=== PATIENT | male | born 1955 | race Caucasian/White ===

== ENCOUNTER → 2020-11-10 | Day surgery (SDC) | payer MEDICARE, OTHER ==
[~2020-11-10] MED LIST: Lactated Ringers 1,000 ML IV SCH
--- NOTE | 2020-11-10 14:43 | OR ---
DATE OF OPERATION: 11/10/2020 PREOPERATIVE DIAGNOSIS: FOLLOWUP POLYPS. POSTOPERATIVE DIAGNOSIS: FOLLOWUP POLYPS. SURGEON: Piotr Acevedo MD PROCEDURE: FULL-LENGTH COLONOSCOPY WITH SNARE POLYPECTOMY X1. ANESTHESIA: MAC. COMPLICATIONS: None. SPECIMEN: Tubular adenoma, 3 mm, rectosigmoid junction. FINDINGS: 1. Full-length colonoscopy. 2. Desai diverticulosis, moderate. 3. Small tubular adenoma, rectosigmoid junction. RECOMMENDATIONS: Followup colonoscopy in 5 years. INDICATIONS: The patient has a prior colonoscopy with polyps removed. He is overdue for a routine followup. DESCRIPTION OF PROCEDURE: The patient was prepped and draped, placed in the left lateral decubitus position. A lubricated Olympus colonoscope was inserted and easily advanced to the cecum. Direct visualization of the ileocecal valve and appendiceal orifice were accomplished. The bowel prep was excellent. Upon withdrawal, the cecum, ascending and transverse colon had no polyps. The patient does have desai diverticulosis, quite moderate in severity extending all the way into the deep right colon, worse as expected in the sigmoid area. Descending colon had no polyps nor did the sigmoid region. No other signs of vascular abnormality, colitis, or bleeding sites. The patient had a small tubular adenoma at around 20 cm in the rectosigmoid region, easily removed with a snare and suctioned into polyp trap #1. The rectal vault was benign. Retroflexion of the scope in the rectum showed no anal lesions. Air was suctioned and the scope removed without complication. WIN/ANNAMARIA /[id number]
== END ==
LOC: CC.SDS 09:51
PROVIDERS: ATTEND Family Medicine
DX: Z12.11 Encounter for screening for malignant neoplasm of colon (principal); K62.1 Rectal polyp; K63.5 Polyp of colon; K57.30 Diverticulosis of large intestine without perforation or abscess without bleeding; K42.9 Umbilical hernia without obstruction or gangrene; K21.9 Gastro-esophageal reflux disease without esophagitis; N52.9 Male erectile dysfunction, unspecified; G25.0 Essential tremor; Z86.010 Personal history of colon polyps
CPT/HCPCS: J7120

== ENCOUNTER → 2022-04-25 | Day surgery (SDC) | payer MEDICARE, OTHER | LOC: CC.SDS 06:00 | PROVIDERS: ATTEND Surgery | DX: K42.9 Umbilical hernia without obstruction or gangrene (principal); Z79.899 Other long term (current) drug therapy ==

== ENCOUNTER 2024-10-22 09:57 | Day surgery (SDC) | payer MEDICARE, OTHER ==
[~2024-10-22 09:57] MED LIST changes: -Lactated Ringers 1,000 ML IV SCH; +Sodium Chloride 0.9% 250 ML IV SCH
[2024-10-22] MEDS ORDERED: Propofol 200 MG/20 ML SDV ONE (10:20)
[2024-10-22] MEDS ORDERED: Ketamine 200 MG/20 ML MDV ONE (10:20)
[2024-10-22] MEDS ORDERED: Midazolam 1 MG/ML 2 ML SDV ONE (10:20)
[2024-10-22] MEDS ORDERED: fentaNYL 50 MCG/ML SDV ONE (10:20)
[2024-10-22] MEDS ORDERED: Lidocaine 2% 20 ML MDV ONE (10:20)
== END 2024-10-22 11:30 | disposition home or self-care (01) ==
LOC: CC.SDS 09:57
PROVIDERS: ATTEND Family Medicine
DX: K21.00 Gastro-esophageal reflux disease with esophagitis, without bleeding (principal); K29.50 Unspecified chronic gastritis without bleeding; E78.5 Hyperlipidemia, unspecified; K27.9 Peptic ulcer, site unspecified, unspecified as acute or chronic, without hemorrhage or perforation; K22.70 Barrett's esophagus without dysplasia; K44.9 Diaphragmatic hernia without obstruction or gangrene; Z79.899 Other long term (current) drug therapy
CPT/HCPCS: 00731; 87081; 88305; 88342; 99100; J2003; J2250; J2704; J3010; J3490